=== PATIENT | female | born 1945 | race Caucasian/White ===

== ENCOUNTER → 2017-03-27 | Outpatient (REF) | payer MEDICARE ==
[~2017-03-27] MED LIST: ACET65TA OR; ASPI81TA85 PO; CALC600T7 PO; CIPR500T19 OR; CIPR500T89 PO; FLAG500T OR; FLAG500T PO; HYOS0.1264 SL; IBUP200C10 PO; IBUP600T26 PO; IBUP60TA PO; LEVS0.124 SL; OCUVCAP2 PO; PLAQ200T PO; PLAQUENIL OR; PLAQUENIL PO; PRED20TA PO; PROTPAK PO; REST0.05 OU; SIME80TA PO; TYLE325T5 PO; VITA500C24 PO
== END ==
LOC: M LAB REF 16:40
PROVIDERS: ATTEND Nurse Practitioner Women's Health
DX: N39.0 Urinary tract infection, site not specified (principal)

== ENCOUNTER → 2017-06-18 | Outpatient (REF) | payer MEDICARE | LOC: M LAB REF 12:52 | PROVIDERS: ATTEND Emergency Medicine | DX: N30.01 Acute cystitis with hematuria (principal) ==

== ENCOUNTER 2017-11-27 12:03 | Emergency (ER) | payer MEDICARE ==
[2017-11-27] MEDS: NS 1,000 ML IV (12:30)
[2017-11-27 12:52] LABS: BASO % 0.6 % (0.0-1.0); EOS # 0.1 10^3/uL (0.0-0.50); EOS % 1.4 % (0.0-3.0); HEMOGLOBIN 12.4 g/dl (12.0-16.0); IMMATURE GRANULOCYTE % 0.4 % (0-3.0); LYMPH # 1.3 10^3/uL (1.5-4.5); LYMPH % 25.8 % (24.0-44.0); MEAN CORPUSCULAR HEMOGLOBIN 30.4 pg (27.0-33.0); MEAN CORPUSCULAR HGB CONC 33.5 g/dl (32.0-36.5); MEAN CORPUSCULAR VOLUME 90.7 fl (80.0-96.0); MONO # 0.3 10^3/uL (0.0-0.8); MONO % 6.6 % (0.0-5.0); NEUTROPHILS # 3.3 10^3/uL (1.8-7.7); NEUTROPHILS % 65.2 % (36.0-66.0); PLATELET COUNT, AUTOMATED 204 10^3/uL (150-450); RED BLOOD COUNT 4.08 10^6/uL (4.00-5.40); RED CELL DISTRIBUTION WIDTH 13.2 % (11.5-14.5)
[2017-11-27 12:59] LABS: KETONE, URINE AUTO RFX NEGATIVE (NEGATIVE); LEUKOCYTE ESTERASE UR AUTO RFX 3+ (NEGATIVE); MUCUS, URINE RFX SMALL (NEGATIVE); NITRITE, URINE AUTO RFX NEGATIVE (NEGATIVE); RBC, URINE AUTO RFX 9 /HPF (0-3); SPECIFIC GRAVITY UR AUTO RFX 1.015 (1.002-1.035); SQUAM EPITHELIAL CELL UR AURFX 2 /HPF (0-6); WBC, URINE AUTO RFX 18 /HPF (0-3)
[2017-11-27 13:14] LABS: LACTIC ACID SEPSIS PROTOCOL 1.2 MMOL/L (0.4-2.0)
[2017-11-27 13:15] LABS: ALBUMIN 3.3 GM/DL (3.2-5.2); ALBUMIN/GLOBULIN RATIO 0.87 (1.00-1.93); ALKALINE PHOSPHATASE 114 U/L (45-117); ALT/SGPT 45 U/L (12-78); ANION GAP 6 MEQ/L (8-16); AST/SGOT 46 U/L (7-37); BILIRUBIN,DIRECT < 0.1 MG/DL (0.0-0.2); BILIRUBIN,TOTAL 0.4 MG/DL (0.2-1.0); BLOOD UREA NITROGEN 8 MG/DL (7-18); CALCIUM LEVEL 8.7 MG/DL (8.8-10.2); CARBON DIOXIDE LEVEL 27 MEQ/L (21-32); CHLORIDE LEVEL 104 MEQ/L (98-107); GLOMERULAR FILTRATION RATE > 60.0 (>39); GLUCOSE, FASTING 88 MG/DL (70-100); POTASSIUM SERUM 4.8 MEQ/L (3.5-5.1); SODIUM LEVEL 137 MEQ/L (136-145); TOTAL PROTEIN 7.1 GM/DL (6.4-8.2)
[2017-11-27] MEDS ORDERED: ISOVUE-370 76% 100ML VIAL (Q9967) As Ordered (13:40)
[2017-11-27] MEDS: KETOROLAC 30 MG/ML VIAL (J1885) IV (13:41)
[2017-11-27] MEDS: AUGMENTIN 875 MG TAB PO (15:17)
== END 2017-11-27 15:19 | disposition home or self-care (01) ==
LOC: M ED 12:03
DX: K57.32 Diverticulitis of large intestine without perforation or abscess without bleeding (principal); I10 Essential (primary) hypertension; E78.00 Pure hypercholesterolemia, unspecified; M34.9 Systemic sclerosis, unspecified; Z88.5 Allergy status to narcotic agent; Z88.2 Allergy status to sulfonamides; Z79.899 Other long term (current) drug therapy
CPT/HCPCS: Q9967

== ENCOUNTER 2017-12-29 07:50 | Emergency (ER) | payer MEDICARE ==
[2017-12-29] MEDS: NS 500 ML IV (08:30)
[2017-12-29 08:40] LABS: BASO % 0.3 % (0.0-1.0); EOS # 0.1 10^3/uL (0.0-0.50); EOS % 0.9 % (0.0-3.0); HEMATOCRIT 40.4 % (36.0-47.0); HEMOGLOBIN 13.6 g/dl (12.0-15.5); IMMATURE GRANULOCYTE % 0.3 % (0-3.0); LYMPH # 1.1 10^3/uL (1.5-4.5); LYMPH % 13.5 % (24.0-44.0); MEAN CORPUSCULAR HEMOGLOBIN 30.6 pg (27.0-33.0); MEAN CORPUSCULAR HGB CONC 33.7 g/dl (32.0-36.5); MONO # 0.5 10^3/uL (0.0-0.8); MONO % 6.8 % (0.0-5.0); NEUTROPHILS # 6.1 10^3/uL (1.8-7.7); NEUTROPHILS % 78.2 % (36.0-66.0); PLATELET COUNT, AUTOMATED 259 10^3/uL (150-450); RED BLOOD COUNT 4.44 10^6/uL (4.00-5.40); RED CELL DISTRIBUTION WIDTH 13.1 % (11.5-14.5); WHITE BLOOD COUNT 7.8 10^3/uL (4.0-10.0)
[2017-12-29] MEDS: NS 1,000 ML IV (08:52)
[2017-12-29 09:00] LABS: ALBUMIN 3.5 GM/DL (3.2-5.2); ALBUMIN/GLOBULIN RATIO 0.88 (1.00-1.93); ALKALINE PHOSPHATASE 159 U/L (45-117); ALT/SGPT 35 U/L (12-78); ANION GAP 7 MEQ/L (8-16); AST/SGOT 30 U/L (7-37); BILIRUBIN,DIRECT 0.1 MG/DL (0.0-0.2); BILIRUBIN,TOTAL 0.6 MG/DL (0.2-1.0); BLOOD UREA NITROGEN 9 MG/DL (7-18); CARBON DIOXIDE LEVEL 26 MEQ/L (21-32); CHLORIDE LEVEL 104 MEQ/L (98-107); CREATININE FOR GFR 0.54 MG/DL (0.55-1.30); GLOMERULAR FILTRATION RATE > 60.0 (>39); GLUCOSE, FASTING 94 MG/DL (70-100); LIPASE 142 U/L (73-393); POTASSIUM SERUM 4.4 MEQ/L (3.5-5.1); SODIUM LEVEL 137 MEQ/L (136-145); TOTAL PROTEIN 7.5 GM/DL (6.4-8.2)
[2017-12-29] MEDS: ONDANSETRON 4MG/2ML VIAL (J2405) IV (09:11)
[2017-12-29] MEDS ORDERED: ISOVUE-370 76% 100ML VIAL (Q9967) As Ordered (09:12)
[2017-12-29] MEDS: MORPHINE 2 MG/ML 1ML SYRINGE (J2270) IV (09:12)
== END 2017-12-29 11:04 | disposition home or self-care (01) ==
LOC: M ED 07:50
DX: K57.92 Diverticulitis of intestine, part unspecified, without perforation or abscess without bleeding (principal); E78.5 Hyperlipidemia, unspecified; Z79.899 Other long term (current) drug therapy; Z88.2 Allergy status to sulfonamides; Z88.5 Allergy status to narcotic agent
CPT/HCPCS: J2405

== ENCOUNTER → 2018-01-14 | Outpatient (REF) | payer MEDICARE ==
[2018-01-14 17:08] LABS: BASO % 0.8 % (0.0-1.0); EOS # 0.1 10^3/uL (0.0-0.50); HEMATOCRIT 37.6 % (36.0-47.0); HEMOGLOBIN 12.6 g/dl (12.0-15.5); IMMATURE GRANULOCYTE % 0.4 % (0-3.0); LYMPH # 1.6 10^3/uL (1.5-4.5); MEAN CORPUSCULAR HEMOGLOBIN 30.9 pg (27.0-33.0); MEAN CORPUSCULAR HGB CONC 33.5 g/dl (32.0-36.5); MEAN CORPUSCULAR VOLUME 92.2 fl (80.0-96.0); MONO # 0.5 10^3/uL (0.0-0.8); MONO % 9.5 % (0.0-5.0); NEUTROPHILS # 3.1 10^3/uL (1.8-7.7); NEUTROPHILS % 58.3 % (36.0-66.0); PLATELET COUNT, AUTOMATED 304 10^3/uL (150-450); RED BLOOD COUNT 4.08 10^6/uL (4.00-5.40); RED CELL DISTRIBUTION WIDTH 13.6 % (11.5-14.5); WHITE BLOOD COUNT 5.2 10^3/uL (4.0-10.0)
[2018-01-14 17:29] LABS: ALBUMIN 3.4 GM/DL (3.2-5.2); ALBUMIN/GLOBULIN RATIO 0.97 (1.00-1.93); ALKALINE PHOSPHATASE 82 U/L (45-117); ALT/SGPT 31 U/L (12-78); ANION GAP 5 MEQ/L (8-16); AST/SGOT 27 U/L (7-37); BILIRUBIN,TOTAL 0.4 MG/DL (0.2-1.0); BLOOD UREA NITROGEN 8 MG/DL (7-18); CALCIUM LEVEL 8.7 MG/DL (8.8-10.2); CARBON DIOXIDE LEVEL 30 MEQ/L (21-32); CHLORIDE LEVEL 106 MEQ/L (98-107); GLOMERULAR FILTRATION RATE > 60.0 (>39); GLUCOSE, FASTING 84 MG/DL (70-100); POTASSIUM SERUM 4.3 MEQ/L (3.5-5.1); SODIUM LEVEL 141 MEQ/L (136-145); THYROID STIMULATING HORMONE 0.729 uIU/ML (0.358-3.740); TOTAL PROTEIN 6.9 GM/DL (6.4-8.2)
== END ==
LOC: M LABDRAW1 11:32
DX: R63.4 Abnormal weight loss (principal)
CPT/HCPCS: 84443

== ENCOUNTER → 2018-02-12 | Outpatient (REF) | payer MEDICARE ==
[2018-02-12 14:16] LABS: C REACTIVE PROTEIN QUANTITATIV < 0.30 MG/DL (0.00-0.30)
[2018-02-12 15:00] LABS: ERYTHROCYTE SEDIMENTATION RATE 37 mm/hr (0-30)
== END ==
LOC: M LABDRAW1 12:44
DX: M31.6 Other giant cell arteritis (principal)
CPT/HCPCS: 86140

== ENCOUNTER 2019-06-02 21:01 | Inpatient (IN) | payer MEDICARE ==
[~2019-06-02] VITALS: Ht 144.8 cm; Wt 44.2 kg
[~2019-06-02 21:01] MED LIST changes: +AUGM875T28 PO; +CALC1TAB30 PO; +CIPR-249 PO; +FISH100049 PO; +HYDR-3715 PO; -IBUP200C10 PO; +IBUP200C25 PO; +IBUP600T42 PO; -IBUP60TA PO; +SERT25TA88 PO; +SYSTSOL14; +VITA500C10 PO
[2019-06-02] MEDS ORDERED: KETOROLAC 30 MG/ML VIAL (J1885) IV ONE (22:30)
[2019-06-03] MEDS ORDERED: [UNRECOGNIZED DRUG - CODE] PO (00:51)
[2019-06-03] MEDS ORDERED: SYST0.6S OU (00:51)
[2019-06-03] MEDS ORDERED: ASCO500T PO (00:51)
[2019-06-03] MEDS ORDERED: MOM 30ML SUSPENSION UDC PO PRN (01:45)
[2019-06-03] MEDS ORDERED: MAALOX 30 ML SUSP *UDC PO PRN (01:45)
[2019-06-03] MEDS ORDERED: ACETAMINOPHEN TAB 650MG DOSE (2X325MG) PO PRN (01:45)
[2019-06-03 02:20] VITALS: BP 167/65
[2019-06-03] MEDS: ONDANSETRON 4MG/2ML VIAL (J2405) IV SCH ×5 (02:47→18:00)
[2019-06-03] MEDS: PERCOCET 5MG/325MG TAB PO PRN ×2 (02:47→08:42)
[2019-06-03] MEDS ORDERED: D5W/0.9% SODIUM CHLORIDE 1,000 ML IV SCH (03:30)
--- NOTE | 2019-06-03 04:16 | HPEPDOC ---
General Date of Admission Jun 03, 2019 at 01:36 Date of Service: Jun 03, 2019 Chief Complaint The patient is a 74-year-old female admitted with a reason for visit of Closed Trimalleolar Fracture Of Left Ankle. Source: Patient Exam Limitations: No limitations Timing/Duration: Day(s) Severity: Moderate History of Present Illness Ms. Aleman is a 74 years old woman who had a mechanical fall at home today and twisted her left ankle. she came ER where x-ray showed Closed Trimalleolar Fracture Of Left Ankle. Pt has no other symptoms than pain. She is her usual state of health. In ER, pt had normal vitals and labs. Ortho consulted: plan for surgery in the morning. Home Medications Scheduled Ascorbic Acid (Ascorbic Acid) 500 Mg Tablet, 500 MG PO DAILY, (Reported) Calcium Carbonate/Vitamin D3 (Calcium 500-Vit D3 200 Caplet) 1 Tab Tab, 1 TAB PO DAILY, (Reported) Bynum-3/Dha/Epa/Fish Oil (Fish Oil 1,000 mg Softgel) 1 Each Capsule, 1 CAP PO BID, (Reported) Sertraline HCl (Sertraline HCl) 25 Mg Tab, 25 MG PO DAILY, (Reported) Scheduled PRN Propylene Glycol (Systane Complete) 10 Ml Drops, 1 DROP OU QID PRN for DRY EYES, (Reported) Allergies Coded Allergies: codeine (Verified Allergy, Mild, GI upset, 06/02/19) Sulfa (Sulfonamide Antibiotics) (Verified Allergy, Unknown, 06/02/19) Past Medical History Medical History HLD, Scleroderma Family History Significant Family History: No pertinent family hx Social History * Smoker: current smoker Alcohol: Denies Drugs: denies A-FIB/CHADSVASC A-FIB History Current/History of A-Fib/PAF?: No Review of Systems Constitutional: Denies: Chills, Fever Eyes: Denies: Pain, Vision change ENT: Denies: Head Aches, Ear Pain Skin: Denies: Rash, Lesions Pulmonary: Denies: Dyspnea, Cough Cardiovascular: Denies: Chest Pain, Palpitations Gastrointestinal: Denies: Nausea, Vomiting, Abdominal Pain Genitourinary: Denies: Dysuria, Frequency Hematologic: Denies: Bruising, Bleeding Excessively Endocrine: Denies: Polydipsia, Polyphagia Musculoskeletal: Reports: Foot Pain; Denies: Back Pain Neurological: Denies: Weakness, Numbness Psych: Denies: Mood Normal, Anxiety, Depression Physical Examination General Exam: Positive: Alert, Cooperative, No Acute Distress Eye Exam: Positive: PERRLA, Conjunctiva & lids normal ENT Exam: Positive: Atraumatic, Mucous membr. moist/pink Neck Exam: Positive: Supple; Negative: JVD Chest Exam: Positive: Clear to auscultation, Normal air movement Heart Exam: Positive: Rate Normal, Regular Rhythm, Normal S1, Normal S2; Negative: Murmurs Abdomen Exam: Positive: Normal bowel sounds, Soft; Negative: Tenderness Extremity Exam: Positive: Normal pulses; Negative: Edema Skin Exam: Positive: Nl turgor and temperature; Negative: Rash, Breakdown Neuro Exam: Positive: Normal Gait, Normal Speech Psych Exam: Positive: Mental status NL, Mood NL Vital Signs Vital Signs Date Time Temp Pulse Resp B/P (MAP) Pulse Ox O2 Delivery O2 Flow Rate FiO2 06/03/19 03:17 16 06/03/19 02:20 98.1 65 167/65 (99) 96 06/03/19 02:15 Room Air Assessment/Plan Closed Trimalleolar Fracture Of Left Ankle - NPO, OR in the morning - Low risk patient undergoing moderate risk procedure; no need for medical optimization - DV prophylaxis from the evening - pain control Plan / VTE VTE Prophylaxis Ordered?: Yes VTE Exclusion Mechanical Proph: Other VTE Exclusion Pharmacological: N/A:VTE Prophy Ordered Plan IVF: Initiate Diet: Make NPO Activity: DARSHANA Ward MD Jun 03, 2019 03:51
[2019-06-03 06:00] VITALS: BP 145/62
--- NOTE | 2019-06-03 07:50 | REP ---
Left ankle four views: There is a bimalleolar fracture., however, on the tibia-fibula series this same date there appears to also be a fracture of the posterior malleolus. Therefore, this is probably a trimalleolar fracture. There is no dislocation. The mortise is symmetric. There is demineralization. Impression: Trimalleolar fracture without dislocation. Electronically Signed by Yeison Marie MD 06/03/2019 07:42 A
--- NOTE | 2019-06-03 07:51 | REP ---
Left tibia-fibula two views: There is a trimalleolar fracture at the ankle with no dislocation. No other tibia-fibula fracture is identified. There are no calcifications or foreign bodies. Electronically Signed by Yeison Marie MD 06/03/2019 07:43 A
--- NOTE | 2019-06-03 07:52 | IPNPDOC ---
Subjective Date Seen The patient was seen on 06/03/19. Subjective Chief Complaint/HPI Pt resting comfortably in bed, reports pain is controlled. She is only c/o of right ear ache Skin: Denies: Rash, Lesions, Jaundice, Bruising, Itching, Dry, Breakdown, Nail Changes, Other Cardiovascular: Denies: Chest Pain, Palpitations, Orthopnea, Paroxysmal Noc. Dyspnea, Edema, Lt Headedness, Other Symptoms Hematologic: Denies: Bruising, Bleeding Excessively, Petecchia, Purpura, Enlarged Lymph Nodes, Other Hematologic Neurological: Denies: Weakness, Numbness, Incoordination, Change in speech, Confusion, Seizures, Other Symptoms Objective Physical Examination General Exam: Positive: Alert, Cooperative, No Acute Distress Eye Exam: Positive: PERRLA, Conjunctiva & lids normal ENT Exam: Positive: Atraumatic, Mucous membr. moist/pink, Pharynx Normal, Tongue Midline Neck Exam: Positive: Supple; Negative: JVD, thyromegaly Chest Exam: Positive: Clear to auscultation, Normal air movement; Negative: Rales, Rhonchi, Wheezing Heart Exam: Positive: Rate Normal, Regular Rhythm, Normal S1, Normal S2; Negative: Murmurs Abdomen Exam: Positive: Normal bowel sounds, Soft; Negative: Tenderness, Hepatospenomegaly, Mass Extremity Exam: Positive: Normal pulses; Negative: Edema Skin Exam: Positive: Nl turgor and temperature; Negative: Rash, Breakdown Neuro Exam: Positive: Normal Gait, Normal Speech, Strength at 5/5 X4 ext Psych Exam: Positive: Mental status NL, Mood NL, Oriented x 3 Assessment /Plan Assessment # s/p traumatic fall with Left Trimalleolar ankle fracture - patient is medically stable, and does not warrant medical optimization, and may proceed with non-elective surgery this afternoon. - norco prn pain, she is tolerating this despite listed allergy to codeine - PT/OT eval # Scleroderma - mild form, she is not on any therapy # Vitamin D deficiency - resume Calcium with vitamin D # Anxiety/Depression - continue sertraline # DVT prophylaxis - SCDs for now, can start lovenox in next 24 hours Plan/VTE VTE Prophylaxis Ordered?: No VTE Exclusion Pharmacological: Other (going to OR today) VS, I&O, 24H, Fishbone Vital Signs/I&O Vital Signs Date Time Temp Pulse Resp B/P (MAP) Pulse Ox O2 Delivery O2 Flow Rate FiO2 06/03/19 06:00 98.4 61 16 145/62 (89) 96 06/03/19 02:15 Room Air I&O- Last 24 Hours up to 6 AM 06/03/19 06:00 Intake Total 0 ml Balance 0 ml OMAIRA DESHPANDE MD Jun 03, 2019 07:52
--- NOTE | 2019-06-03 07:54 | REP ---
Left foot four views: There is a trimalleolar fracture at the ankle without dislocation. Additionally, I suspect there are nondisplaced fractures at the bases of the second and third metatarsals. This should be correlated with clinical point tenderness. There is demineralization. Joint spaces are unremarkable. No calcifications are foreign bodies. Impression: Trimalleolar fracture at the ankle without dislocation. Probable nondisplaced fractures at the bases of the second and third metatarsals. Electronically Signed by Yeison Marie MD 06/03/2019 07:46 A
[2019-06-03] MEDS: ASCORBIC ACID 500 MG TAB PO SCH (08:21)
[2019-06-03] MEDS: SERTRALINE HCL 25 MG TABLET PO SCH (08:42)
[2019-06-03 13:41] VITALS: BP 142/62
[2019-06-03] MEDS ORDERED: fentaNYL 100 MCG/2 ML INJECTION (J3010) As Ordered ONE ×2 (15:00→15:34)
[2019-06-03] MEDS ORDERED: MIDAZOLAM INJ 2 MG/2 ML VIAL (J2250) As Ordered ONE ×2 (15:00→15:34)
[2019-06-03] MEDS ORDERED: ONDANSETRON 4MG/2ML VIAL (J2405) As Ordered ONE ×2 (15:31→23:30)
[2019-06-03] MEDS ORDERED: ONDANSETRON 4MG/2ML VIAL (J2405) IV ONE (15:45)
[2019-06-03] MEDS ORDERED: ROPIvacaine 0.5% 30 ML INJECTION (J2795 PER 1MG) ONE (16:41)
[2019-06-03] MEDS ORDERED: LIDOCAINE 1% MDV 20ML VIAL ONE (16:41)
[2019-06-03] MEDS ORDERED: dexameTHASONE 10 MG/1 ML VIAL PRES.FREE (J1100) ONE (16:41)
[2019-06-03] MEDS ORDERED: fentaNYL 100 MCG/2 ML INJECTION (J3010) IV SCH (16:45)
[2019-06-03] MEDS ORDERED: MIDAZOLAM INJ 2 MG/2 ML VIAL (J2250) IV SCH (16:45)
[2019-06-03] MEDS ORDERED: BUPIVACAINE HCL 0.5% 30 ML VIAL As Ordered ONE (20:53)
[2019-06-03] MEDS ORDERED: ceFAZolin 1GM INJ (J0690 PER 500MG) As Ordered ONE (20:53)
[2019-06-03] MEDS ORDERED: PROPOFOL 500 MG/50 ML VIAL As Ordered ONE (20:59)
[2019-06-03] MEDS ORDERED: HEPARIN SOD (PORCINE) 5000 UNITS/ML VIAL SQ SCH (21:00)
[2019-06-03] MEDS ORDERED: KETOROLAC 60 MG/2 ML VIAL (J1885) As Ordered ONE (22:52)
[2019-06-03] MEDS ORDERED: ONDANSETRON 4MG/2ML VIAL (J2405) IV PRN (23:15)
[2019-06-03] MEDS ORDERED: LR 1,000 ML IV SCH ×2 (23:15→23:45)
[2019-06-03] MEDS ORDERED: HYDROMORPHONE HCL 0.5 MG/ 0.5 ML SYRINGE (J1170 PER 1) IV PRN (23:15)
[2019-06-03] MEDS ORDERED: PERCOCET 5MG/325MG TAB PO PRN (23:15)
[2019-06-03] MEDS ORDERED: fentaNYL 100 MCG/2 ML INJECTION (J3010) IV PRN (23:15)
[2019-06-03] MEDS ORDERED: METOCLOPRAMIDE INJ 10MG/2ML VIAL (J2765) IV PRN (23:30)
[2019-06-03] MEDS ORDERED: traMADol 50 MG TAB PO PRN (23:45)
[2019-06-03] MEDS ORDERED: METOCLOPRAMIDE INJ 10MG/2ML VIAL (J2765) As Ordered ONE (23:47)
[2019-06-04] VITALS (9 sets, daily range): BP systolic 114–140; BP diastolic 47–59
[2019-06-04] MEDS: ONDANSETRON 4MG/2ML VIAL (J2405) IV SCH ×7 (00:12→21:59)
[2019-06-04] MEDS: ACETAMINOPHEN 500 MG TAB PO SCH ×4 (00:19→23:02)
[2019-06-04] MEDS: ceFAZolin SOD 1 GM in D5W MINI-BAG PLUS 50 ML IV SCH ×2 (04:06→12:49)
[2019-06-04] MEDS ORDERED: TRAM50TA2 PO ×2 (05:57→06:04)
[2019-06-04] MEDS ORDERED: ASPI81TA85 PO (05:57)
[2019-06-04] MEDS ORDERED: traMADol 50 MG TAB PO PRN ×2 (06:00)
[2019-06-04 08:25] LABS: HEMATOCRIT 30.6 % (36.0-47.0); HEMOGLOBIN 10.2 g/dl (12.0-15.5); MEAN CORPUSCULAR HGB CONC 33.3 g/dl (32.0-36.5); PLATELET COUNT, AUTOMATED 185 10^3/uL (150-450); WHITE BLOOD COUNT 6.9 10^3/uL (4.0-10.0)
[2019-06-04 08:41] LABS: BLOOD UREA NITROGEN 8 MG/DL (7-18); CALCIUM LEVEL 8.3 MG/DL (8.8-10.2); CARBON DIOXIDE LEVEL 25 MEQ/L (21-32); CHLORIDE LEVEL 102 MEQ/L (98-107); GLOMERULAR FILTRATION RATE > 60.0 (>39); GLUCOSE, FASTING 148 MG/DL (70-100); POTASSIUM SERUM 4.2 MEQ/L (3.5-5.1); SODIUM LEVEL 136 MEQ/L (136-145)
[2019-06-04] MEDS: ASCORBIC ACID 500 MG TAB PO SCH (08:47)
[2019-06-04] MEDS: SENOKOT S TAB PO SCH ×2 (08:48→20:42)
[2019-06-04] MEDS: SERTRALINE HCL 25 MG TABLET PO SCH (08:48)
[2019-06-04] MEDS: ASPIRIN 81 MG ENTERIC TAB PO SCH ×2 (08:49→20:42)
[2019-06-04] MEDS: MIRALAX *UNIT DOSE* 17GM PACKET PO SCH (08:49)
--- NOTE | 2019-06-04 09:33 | REP ---
C-ARM VIEWS LEFT ANKLE: Multiple C-arm views of the left ankle performed during placement of metallic plate and screws in the distal fibula and metallic screws in the medial malleolus. Osseous structures are well aligned. Ankle mortise appears anatomic. 1 minute and 22 seconds fluoroscopy time utilized. Electronically Signed by Yeison Jarquin MD 06/04/2019 06:28 P
--- NOTE | 2019-06-04 11:29 | RO ---
DATE OF PROCEDURE: 06/03/2019 PREOPERATIVE DIAGNOSIS: Left bimalleolar ankle fracture. POSTOPERATIVE DIAGNOSIS: Left bimalleolar ankle fracture. PROCEDURE: Open reduction internal fixation left ankle. SURGEON: Dr. Latoya Delcid [employer] OPERATOR: None. ANESTHESIA: LMA with popliteal nerve block. ESTIMATED BLOOD LOSS: 25 mL. COMPLICATIONS: None. IMPLANTS: Synthes 6-hole 1/3 tubular locking plate with associated 3.5 cortical and 4.0 cancellous screws. Two 4.0 mm cannulated screws in the medial malleolus. CONDITION: Stable. INDICATIONS: Nicolette Aleman is a 74-year-old female who is status post a left ankle fracture. She presents for surgical fixation. Risks and benefits of surgery were discussed with the patient in detail and include, but are not limited to infection, damage to nerves and blood vessels, need for additional procedures. Informed consent was obtained. DESCRIPTION OF PROCEDURE: The patient was met in the postanesthesia care unit (PACU) where her left lower extremity was examined. She did have two fracture blisters, however, these were more on the posterior medial aspect of the patient's ankle and otherwise soft tissue was free of any lesions and suitable for surgery. The fracture blisters were out of the way of the incision. She underwent a popliteal nerve block. Her left lower extremity was marked. She was taken to the operating room where she underwent general anesthesia. A well padded tourniquet was applied to the left upper thigh. The left lower extremity was prepped and draped in the normal sterile fashion. Following this, an official time out was held where the correct patient, operative site and operative procedure were verified. Using an Esmarch, the left lower extremity was exsanguinated and tourniquet was inflated to 250 mmHg. It was up for approximately 95 minutes. An incision was made over the posterior lateral aspect of the fibula. The fracture was identified and cleaned of hematoma and debris. It was reduced using pointed reduction clamp. Reduction was held with a 0.062 K-wire. A 6-hole 1/3 tubular plate was selected. Its position was confirmed on AP, lateral and mortise views. The plate was applied using 3.5 mm cortical screws proximally and 4.0 mm cancellous screws distally. There was good compression across the fracture site. Hardware placement and fracture reduction were verified on the C-arm using AP, lateral and mortise views. Next, attention was turned to the medial malleolus. Incision was made just over the medial malleolus. Care was taken to stay as far as possible from the fracture blisters. The fracture was identified and cleaned of hematoma and debris. Copious irrigation was performed to the fracture site and exposed the tibial talar joint. Following this, the fracture was reduced using dental pick and held in place with a 0.062 K-wire. Following that, two 4.0 mm cannulated screws were placed across the fracture. Final x-rays were performed in AP, mortise and lateral views. An external rotation stress test was performed at this time and was found to be stable. All wounds were copiously irrigated. Deep tissues were closed using #3-0 Vicryl and skin was closed using #3-0 nylon. A well padded dressing was applied. The patient was extubated and transferred to the postanesthesia care unit (PACU) in stable condition. PLAN: The patient will be non weight bearing on the left lower extremity with strict elevation. Plan will be for ulcer and for deep vein thrombosis (DVT) prophylaxis. She will be readmitted to the medicine service where she will also be on IV antibiotics.
--- NOTE | 2019-06-04 11:54 | IPNPDOC ---
Subjective Date Seen The patient was seen on 06/04/19. Subjective Chief Complaint/HPI doing well this morning no complaints Objective Physical Examination General Exam: Positive: Alert, Cooperative, No Acute Distress, Other (sitting in chair) Eye Exam: Positive: PERRLA, Conjunctiva & lids normal ENT Exam: Positive: Atraumatic, Mucous membr. moist/pink, Pharynx Normal, Tongue Midline Neck Exam: Positive: Supple; Negative: JVD, thyromegaly Chest Exam: Positive: Clear to auscultation, Normal air movement; Negative: Rales, Rhonchi, Wheezing Heart Exam: Positive: Rate Normal, Regular Rhythm, Normal S1, Normal S2; Negative: Murmurs Abdomen Exam: Positive: Normal bowel sounds, Soft; Negative: Tenderness, Hepatospenomegaly, Mass Extremity Exam: Positive: Normal pulses; Negative: Edema Skin Exam: Positive: Nl turgor and temperature; Negative: Rash, Breakdown Neuro Exam: Positive: Normal Gait, Normal Speech, Strength at 5/5 X4 ext Psych Exam: Positive: Mental status NL, Mood NL, Oriented x 3 Assessment /Plan Assessment # s/p traumatic mechanical fall from ground level with Left Bimalleolar ankle fracture, POD # 1 s/p ORIF - NWB LLE - Asa 81 mg bid for DVT prophylaxis - am labs stable # Scleroderma - mild form, she is not on any therapy # Vitamin D deficiency - resume Calcium with vitamin D # Anxiety/Depression - continue sertraline # DVT prophylaxis - SCDs + Asa 81 mg bid Plan/VTE VTE Prophylaxis Ordered?: No VTE Exclusion Pharmacological: Other (going to OR today) VS, I&O, 24H, Fishbone Vital Signs/I&O Vital Signs Date Time Temp Pulse Resp B/P (MAP) Pulse Ox O2 Delivery O2 Flow Rate FiO2 06/04/19 06:30 98.2 67 18 136/55 (82) 98 06/04/19 02:59 2.0 06/03/19 02:15 Room Air I&O- Last 24 Hours up to 6 AM 06/04/19 06:00 Intake Total 1682 ml Output Total 1600 ml Balance 82 ml Laboratory Data 24H LABS Laboratory Tests 2 06/04/19 08:07: Nucleated Red Blood Cells % (auto) 0.0, Anion Gap 9, Glomerular Filtration Rate > 60.0, Blood Urea Nitrogen 8, Creatinine 0.60, Sodium Level 136, Potassium Level 4.2, Chloride Level 102, Carbon Dioxide Level 25, Calcium Level 8.3L CBC/BMP Laboratory Tests 06/04/19 08:07 Red Blood Count 3.40 L, Mean Corpuscular Volume 90.0, Mean Corpuscular Hemoglobin 30.0, Mean Corpuscular Hemoglobin Concent 33.3, Red Cell Distribution Width 13.8, Calcium Level 8.3 L OMAIRA DESHPANDE MD Jun 04, 2019 11:54
--- NOTE | 2019-06-04 19:19 | CR ---
DATE OF CONSULTATION: 06/03/2019 CHIEF COMPLAINT: Left ankle pain. HISTORY OF PRESENT ILLNESS: Ms. Aleman is a 74-year-old woman who was admitted by the hospitalist through the emergency room after stumbling and injuring her left ankle. She was coming down some stairs, stumbled on the last stair, and twisted the ankle. She could not bear weight. She ended up being brought in through the emergency room, where imaging studies revealed what is technically a trimalleolar fracture of the left ankle with the talus aligned under the tibia. She was splinted in the emergency room and admitted to the hospitalist service for medical optimization and preoperative medical planning. ALLERGIES: No known drug allergies. MEDICAL HISTORY 1. Scleroderma. 2. Anxiety, depression. SURGICAL HISTORY: Negative. MEDICATIONS: Zoloft SOCIAL HISTORY: Nonsmoker. Lives at home. FAMILY HISTORY: This 74-year-old lives with her mother, who is in her 90s and struggling. REVIEW OF SYSTEMS: Complaining only of left ankle pain. Not complaining of loss of consciousness, headache, swallowing trouble, hoarseness, shortness of breath, abdominal pain, skin trouble, change in bowel or bladder habits, endocrine problems, or neurologic issues. IMAGING STUDIES: Reviewed as per history of present illness (HPI). CLINICAL EXAMINATION: Alert and cooperative. Mood and affect appropriate. She is not in distress. She is not short of breath. She talks in complete sentences and is quite articulate. There is no abdominal distension. Healthy skin, upper and lower extremities. Left lower extremity: Tender at the ankle. [employer], well-perfused toes. Palpable dorsalis pedis pulse. Splint was inspected and intact. No effusion at the knee. No pain with rotation at the hip. IMPRESSION: Left ankle technically a trimalleolar fracture. RECOMMENDATIONS: Spoke with the patient about operative fixation using metal hardware. We completed the preoperative packet. I completed a consent with the patient. We talked about the procedure proposed and risks, including, but not limited to, pain, failure, limp, infection, need for more surgery, skin problems, blood clots, infection, other issues. She agreed to proceed. I explained to the patient that if I were not available to do the surgery, her case might be passed to the oncoming on-call physician. The patient was comfortable with our plans.
[2019-06-05] MEDS: ONDANSETRON 4MG/2ML VIAL (J2405) IV SCH ×3 (02:00→10:00)
[2019-06-05 06:00] VITALS: BP 140/54
[2019-06-05] MEDS: ACETAMINOPHEN 500 MG TAB PO SCH (08:00)
[2019-06-05] MEDS: SENOKOT S TAB PO SCH (08:01)
[2019-06-05] MEDS: SERTRALINE HCL 25 MG TABLET PO SCH (08:01)
[2019-06-05] MEDS: ASPIRIN 81 MG ENTERIC TAB PO SCH (08:01)
[2019-06-05] MEDS: MIRALAX *UNIT DOSE* 17GM PACKET PO SCH (08:02)
[2019-06-05] MEDS: ASCORBIC ACID 500 MG TAB PO SCH (08:02)
--- NOTE | 2019-06-05 09:16 | IPNPDOC ---
Subjective Date Seen The patient was seen on 06/05/19. Subjective Chief Complaint/HPI Nerve block has wore off, so she's experiencing pain this morning. No other complaints. Objective Physical Examination General Exam: Positive: Alert, Cooperative, Mild Distress Eye Exam: Positive: PERRLA, Conjunctiva & lids normal ENT Exam: Positive: Atraumatic, Mucous membr. moist/pink, Pharynx Normal, Tongue Midline Neck Exam: Positive: Supple; Negative: JVD, thyromegaly Chest Exam: Positive: Clear to auscultation, Normal air movement; Negative: Rales, Rhonchi, Wheezing Heart Exam: Positive: Rate Normal, Regular Rhythm, Normal S1, Normal S2; Negative: Murmurs Abdomen Exam: Positive: Normal bowel sounds, Soft; Negative: Tenderness, Hepatospenomegaly, Mass Extremity Exam: Positive: Normal pulses (right foot only, left foot has cast. cap refill < 5 sec, toes pink color); Negative: Edema Skin Exam: Positive: Nl turgor and temperature; Negative: Rash, Breakdown Neuro Exam: Positive: Normal Speech, Normal Tone, Sensation Intact Psych Exam: Positive: Mental status NL, Mood NL, Oriented x 3 Assessment /Plan Assessment # s/p traumatic mechanical fall from ground level with Left Bimalleolar ankle fracture, POD # 2 s/p ORIF - NWB LLE - Asa 81 mg bid for DVT prophylaxis - labs remain stable # Scleroderma - mild form, she is not on any therapy # Vitamin D deficiency - resume Calcium with vitamin D # Anxiety/Depression - continue sertraline # DVT prophylaxis - SCDs + Asa 81 mg bid # Dispo: Medically stable for discharge today if does well with PT this am. Plan/VTE VTE Prophylaxis Ordered?: No VTE Exclusion Pharmacological: Other (going to OR today) VS, I&O, 24H, Fishbone Vital Signs/I&O Vital Signs Date Time Temp Pulse Resp B/P (MAP) Pulse Ox O2 Delivery O2 Flow Rate FiO2 06/05/19 06:00 98.3 62 18 140/54 (82) 96 06/04/19 02:59 2.0 06/03/19 02:15 Room Air I&O- Last 24 Hours up to 6 AM0 06/05/19 05:59 Intake Total 495 ml Output Total 600 ml Balance -105 ml OMAIRA DESHPANDE MD Jun 05, 2019 09:16
--- NOTE | 2019-06-06 07:05 | IPN ---
DATE: 06/05/2019 CHIEF COMPLAINT: Postop day 1 left ankle fracture. HISTORY OF PRESENT ILLNESS: The patient is seen today on the amador at [facility] [address]. She had open reduction internal fixation apparently by Dr. Delcid yesterday. She is doing well. No concerns. PHYSICAL EXAMINATION: Well-appearing 74-year-old female. Splint is in place on left ankle. She is able to wiggle her toes with normal sensation and the toes are warm and well perfused. ASSESSMENT/PLAN: This pleasant individual may be stable for discharge today if she clears the stairs with physical therapy.
--- NOTE | 2019-06-07 16:35 | DSES ---
DATE OF ADMISSION: 06/03/2019 DATE OF DISCHARGE: 06/05/2019 FINANCIAL NUMBER: [id number] DISCHARGE DIAGNOSIS: 1. Traumatic mechanical fall from ground level with left bimalleolar ankle fracture. 2. Status-post open reduction internal fixation of left ankle fracture. 3. History of scleroderma. 4. Vitamin D deficiency. 5. Anxiety and depression. PROCEDURES PERFORMED DURING THIS HOSPITALIZATION: 1. Left ankle open reduction internal fixation. CONSULTANTS ON THE CASE: Dr. Parr of the orthopedic service. DISPOSITION: Patient is discharged home wit home health DISCHARGE INSTRUCTIONS: The patient is to contact Dr[facility] on [facility] to make an appointment for next week. CONDITION AT DISCHARGE: Stable. IMAGING STUDIES OBTAINED DURING HOSPITAL STAY: 1. Ankle x-ray which showed trimalleolar fracture without dislocation. Tibiofibular x-ray which showed trimalleolar fracture at the ankle with no dislocation. No other tibia fibular fractures or loose bodies. There are no calcifications or foreign bodies. Foot x-ray showed trimalleolar fracture at the ankle without dislocation. Probable nondisplaced fracture at the base of the 2nd and 3rd metatarsals. LABS: White count 6.9, hemoglobin 10.2, hematocrit 30.6, platelet counts are 185,000, Sodium 146, potassium 4.2, chloride 102, carbon dioxide 25, anion gap 9, BUN 8, creatinine 0.6, glucose 148, calcium 8.3. DISCHARGE MEDICATIONS: Aspirin 81 mg twice a day for the next 30 days. Tramadol 50 mg 1 to 2 tabs every 4 hours as needed for pain. Ascorbic acid 500 mg daily, calcium with vitamin D 1 tab daily. Fish oil 100 mg twice a day and propylene glycol 10 mL drops 1 drop to her right eye every 6 hours as needed for dry eyes, sertraline 25 mg by mouth daily. HOSPITAL COURSE: Mrs. Aleman is a 74-year-old woman who had suffered a fall after tripping. The patient presented to the hospital with left ankle pain. Imaging studies as described above indicated that she had a left trimalleolar ankle fracture. She was admitted to the hospitalist service where she was cleared for surgery. The patient was seen by the orthopedic service and taken to the OR by Dr. Parr and underwent left ankle open reduction internal fixation. Her preoperative course was uncomplicated. She was subsequently seen by physical therapy and occupational therapy in the postoperative setting and did quite well. She was deemed stable for discharge home with home health services. Patient was discharged home in stable condition. At the time of discharge the patient's temperature was 98.2, pulse 62, respirations 18, blood pressure 140/54. Oxygen sat 96% on room air. In general the patient is alert and oriented times 3. She appears in no acute distress. Skin is intact. Head is atraumatic normocephalic. Pupils are symmetric and reactive to light. Oropharynx is clear. Neck is supple. Lung sounds are present without rales or rhonchi. Heart is S1, S1 no murmurs or gallops. Abdomen is soft, nontender and nondistended. Extremities without any significant cyanosis, clubbing or edema with the exception of her left lower extremity which has a cast in place. Toes are visible and pink in color. Cap refill less than 5 seconds.
== END 2019-06-05 13:55 | disposition home health service (06) | DRG 494 ==
LOC: M ED 21:01 → M ED INP 06-03 01:36 → M MS5PR 06-03 02:29
PROVIDERS: ADMIT Internal Medicine; ATTEND Internal Medicine
PROC: 0QSG04Z Reposition Right Tibia with Internal Fixation Device, Open Approach (ICD-10-PCS; 2019-06-03)
PROC: 0QSK04Z Reposition Left Fibula with Internal Fixation Device, Open Approach (ICD-10-PCS; principal; 2019-06-03 16:00)
DX: S82.852A Displaced trimalleolar fracture of left lower leg, initial encounter for closed fracture (principal); X50.1XXA Overexertion from prolonged static or awkward postures, initial encounter; Y92.009 Unspecified place in unspecified non-institutional (private) residence as the place of occurrence of the external cause; W10.9XXA Fall (on) (from) unspecified stairs and steps, initial encounter; E55.9 Vitamin D deficiency, unspecified; E78.5 Hyperlipidemia, unspecified; F32.9 Major depressive disorder, single episode, unspecified; F41.9 Anxiety disorder, unspecified; M34.9 Systemic sclerosis, unspecified; Z88.2 Allergy status to sulfonamides; Z88.5 Allergy status to narcotic agent; Z79.899 Other long term (current) drug therapy

== ENCOUNTER → 2019-06-30 | Outpatient (REF) | payer MEDICARE ==
[~2019-06-30] MED LIST changes: +ASCO500T PO; +SERT25TA21 PO; -SERT25TA88 PO; +SYST0.6S OU; +TRAM50TA2 PO; +[UNRECOGNIZED DRUG - CODE] PO
== END ==
LOC: M LABDRAW1 10:36
PROVIDERS: ATTEND Internal Medicine Rheumatology
DX: M31.6 Other giant cell arteritis (principal)

== ENCOUNTER → 2019-07-26 | Outpatient (REF) | payer MEDICARE ==
[2019-07-26 11:40] LABS: BASO % 0.6 % (0.0-1.0); EOS # 0.1 10^3/uL (0.0-0.5); EOS % 1.4 % (0.0-3.0); HEMATOCRIT 36.9 % (36.0-47.0); HEMOGLOBIN 11.9 g/dl (12.0-15.5); LYMPH # 1.8 10^3/uL (1.5-5.0); LYMPH % 35.4 % (24.0-44.0); MEAN CORPUSCULAR HEMOGLOBIN 29.8 pg (27.0-33.0); MEAN CORPUSCULAR HGB CONC 32.2 g/dl (32.0-36.5); MEAN CORPUSCULAR VOLUME 92.5 fl (80.0-96.0); MONO # 0.4 10^3/uL (0.0-0.8); MONO % 7.9 % (0.0-5.0); NEUTROPHILS # 2.8 10^3/uL (1.5-8.5); NEUTROPHILS % 54.5 % (36.0-66.0); PLATELET COUNT, AUTOMATED 320 10^3/uL (150-450); RED BLOOD COUNT 3.99 10^6/uL (4.00-5.40); WHITE BLOOD COUNT 5.1 10^3/uL (4.0-10.0)
[2019-07-26 12:03] LABS: ERYTHROCYTE SEDIMENTATION RATE 48 mm/hr (0-30)
== END ==
LOC: M LABDRAW1 10:03
PROVIDERS: ATTEND Orthopaedic Surgery
DX: S82.852D Displaced trimalleolar fracture of left lower leg, subsequent encounter for closed fracture with routine healing (principal); W18.30XD Fall on same level, unspecified, subsequent encounter; Y92.009 Unspecified place in unspecified non-institutional (private) residence as the place of occurrence of the external cause

== ENCOUNTER 2019-08-09 12:00 | Outpatient (RCR) | payer MEDICARE | END 2019-08-14 | LOC: M PT 12:00 | PROVIDERS: ATTEND Orthopaedic Surgery | DX: S82.852D Displaced trimalleolar fracture of left lower leg, subsequent encounter for closed fracture with routine healing (principal); W18.30XD Fall on same level, unspecified, subsequent encounter; Y92.009 Unspecified place in unspecified non-institutional (private) residence as the place of occurrence of the external cause ==

== ENCOUNTER 2019-09-03 11:40 | Outpatient (RCR) | payer MEDICARE | END 2019-09-14 | LOC: M PT 11:40 | PROVIDERS: ATTEND Orthopaedic Surgery | DX: Q74.2 Other congenital malformations of lower limb(s), including pelvic girdle (principal) ==

== ENCOUNTER 2019-09-17 11:28 | Outpatient (RCR) | payer MEDICARE | END 2019-10-15 | LOC: M PT 11:28 | PROVIDERS: ATTEND Orthopaedic Surgery | DX: Q74.2 Other congenital malformations of lower limb(s), including pelvic girdle (principal) ==

== ENCOUNTER → 2019-12-01 | Outpatient (REF) | payer MEDICARE ==
[2019-12-01 19:31] LABS: BASO % 0.5 % (0.0-1.0); EOS % 0.5 % (0.0-3.0); HEMATOCRIT 35.9 % (36.0-47.0); HEMOGLOBIN 11.2 g/dl (12.0-15.5); LYMPH # 2.2 10^3/uL (1.5-5.0); LYMPH % 26.5 % (24.0-44.0); MEAN CORPUSCULAR HEMOGLOBIN 28.9 pg (27.0-33.0); MEAN CORPUSCULAR HGB CONC 31.2 g/dl (32.0-36.5); MEAN CORPUSCULAR VOLUME 92.8 fl (80.0-96.0); MONO # 0.7 10^3/uL (0.0-0.8); MONO % 8.8 % (0.0-5.0); NEUTROPHILS # 5.2 10^3/uL (1.5-8.5); NEUTROPHILS % 63.3 % (36.0-66.0); PLATELET COUNT, AUTOMATED 259 10^3/uL (150-450); RED BLOOD COUNT 3.87 10^6/uL (4.00-5.40); WHITE BLOOD COUNT 8.2 10^3/uL (4.0-10.0)
[2019-12-01 19:39] LABS: ALT/SGPT 43 U/L (12-78); BILIRUBIN,TOTAL 0.6 MG/DL (0.2-1.0); BLOOD UREA NITROGEN 10 MG/DL (7-18); CALCIUM LEVEL 8.6 MG/DL (8.8-10.2); CARBON DIOXIDE LEVEL 30 MEQ/L (21-32); CHLORIDE LEVEL 107 MEQ/L (98-107); CREATININE FOR GFR 0.58 MG/DL (0.55-1.30); GLOMERULAR FILTRATION RATE > 60.0 (>39); GLUCOSE, FASTING 76 MG/DL (70-100); POTASSIUM SERUM 3.7 MEQ/L (3.5-5.1); SODIUM LEVEL 139 MEQ/L (136-145); THYROID STIMULATING HORMONE 0.952 uIU/ML (0.358-3.740); TOTAL PROTEIN 6.4 GM/DL (6.4-8.2)
== END ==
LOC: M LAB REF 19:08 → M LABDRWAD 19:08
PROVIDERS: ATTEND Physician Assistant
DX: F43.22 Adjustment disorder with anxiety (principal); M34.0 Progressive systemic sclerosis; K58.9 Irritable bowel syndrome, unspecified

== ENCOUNTER → 2019-12-06 | Outpatient (REF) | payer MEDICARE ==
[2019-12-06 16:54] LABS: FOLATE 4.9 NG/ML
== END ==
LOC: M LABDRWAD 16:07
PROVIDERS: ATTEND Physician Assistant
DX: D64.9 Anemia, unspecified (principal)

== ENCOUNTER → 2019-12-07 | Outpatient (REF) | payer MEDICARE | LOC: M LAB REF 12:18 | PROVIDERS: ATTEND Physician Assistant | DX: D64.9 Anemia, unspecified (principal) ==

== ENCOUNTER → 2020-03-09 | Outpatient (REF) | payer MEDICARE ==
[2020-03-09 14:06] LABS: BASO % 0.5 % (0.0-1.0); EOS % 0.5 % (0.0-3.0); HEMATOCRIT 39.7 % (36.0-47.0); LYMPH # 1.9 10^3/uL (1.5-5.0); LYMPH % 31.6 % (24.0-44.0); MEAN CORPUSCULAR HEMOGLOBIN 30.2 pg (27.0-33.0); MEAN CORPUSCULAR HGB CONC 32.7 g/dl (32.0-36.5); MEAN CORPUSCULAR VOLUME 92.1 fl (80.0-96.0); MONO # 0.5 10^3/uL (0.0-0.8); MONO % 8.2 % (0.0-5.0); NEUTROPHILS # 3.6 10^3/uL (1.5-8.5); PLATELET COUNT, AUTOMATED 255 10^3/uL (150-450); RED BLOOD COUNT 4.31 10^6/uL (4.00-5.40); WHITE BLOOD COUNT 6.1 10^3/uL (4.0-10.0)
== END ==
LOC: M LABDRWAD 13:09
PROVIDERS: ATTEND Physician Assistant
DX: D64.9 Anemia, unspecified (principal)

== ENCOUNTER → 2020-04-14 | Outpatient (REF) | payer MEDICARE ==
[~2020-04-14] MED LIST changes: -ASPI81TA85 PO; +ASPI81TA86 PO; +CALC-212 PO
[2020-05-28 08:10] LABS: SSA SJOGRENS A SEE SEPARATE REPORT
[2020-05-28 08:11] LABS: SSB SJOGRENS B SEE SEPARATE REPORT
== END ==
LOC: M LABDRWAD 10:37
PROVIDERS: ATTEND Optometrist
DX: Z13.29 Encounter for screening for other suspected endocrine disorder (principal); Z79.899 Other long term (current) drug therapy

== ENCOUNTER → 2020-04-14 | Outpatient (REF) | payer MEDICARE ==
[2020-06-01 19:26] LABS: ALBUMIN 3.2 GM/DL (3.2-5.2); ALT/SGPT 46 U/L (12-78); BILIRUBIN,TOTAL 0.3 MG/DL (0.2-1.0); BLOOD UREA NITROGEN 11 MG/DL (7-18); CALCIUM LEVEL 8.6 MG/DL (8.8-10.2); CARBON DIOXIDE LEVEL 30 MEQ/L (21-32); CHLORIDE LEVEL 106 MEQ/L (98-107); CREATININE FOR GFR 0.55 MG/DL (0.55-1.30); FERRITIN 27 NG/ML (8-252); GLOMERULAR FILTRATION RATE > 60.0 (>39); GLUCOSE, FASTING 70 MG/DL (70-100); IRON (FE) 119 UG/DL (50-170); PERCENT SATURATION 45.6 % (13.2-45.0); POTASSIUM SERUM 4.2 MEQ/L (3.5-5.1); SODIUM LEVEL 141 MEQ/L (136-145); TOTAL IRON BINDING CAPACITY 261 UG/DL (250-450); TOTAL PROTEIN 6.7 GM/DL (6.4-8.2)
[2020-06-11 14:43] LABS: BASO % 0.4 % (0.0-1.0); EOS % 0.4 % (0.0-3.0); HEMATOCRIT 37.6 % (36.0-47.0); HEMOGLOBIN 12.1 g/dl (12.0-15.5); LYMPH # 1.9 10^3/uL (1.5-5.0); LYMPH % 25.6 % (24.0-44.0); MEAN CORPUSCULAR HEMOGLOBIN 30.4 pg (27.0-33.0); MEAN CORPUSCULAR HGB CONC 32.2 g/dl (32.0-36.5); MEAN CORPUSCULAR VOLUME 94.5 fl (80.0-96.0); MONO # 0.6 10^3/uL (0.0-0.8); MONO % 8.7 % (0.0-5.0); NEUTROPHILS # 4.7 10^3/uL (1.5-8.5); NEUTROPHILS % 64.6 % (36.0-66.0); PLATELET COUNT, AUTOMATED 233 10^3/uL (150-450); RED BLOOD COUNT 3.98 10^6/uL (4.00-5.40); WHITE BLOOD COUNT 7.2 10^3/uL (4.0-10.0)
== END ==
LOC: M LABDRWAD 10:35
PROVIDERS: ATTEND Physician Assistant
DX: K58.9 Irritable bowel syndrome, unspecified (principal); D50.9 Iron deficiency anemia, unspecified

== ENCOUNTER → 2020-10-24 | Outpatient (CLI) | payer MEDICARE ==
[2020-10-24 15:38] LABS: BASO % 0.4 % (0.0-1.0); EOS % 0.3 % (0.0-3.0); HEMATOCRIT 39.5 % (36.0-47.0); HEMOGLOBIN 12.7 g/dl (12.0-15.5); LYMPH # 1.9 10^3/uL (1.5-5.0); LYMPH % 27.6 % (24.0-44.0); MEAN CORPUSCULAR HGB CONC 32.2 g/dl (32.0-36.5); MEAN CORPUSCULAR VOLUME 96.3 fl (80.0-96.0); MONO # 0.6 10^3/uL (0.0-0.8); MONO % 9.2 % (0.0-5.0); NEUTROPHILS # 4.3 10^3/uL (1.5-8.5); NEUTROPHILS % 62.1 % (36.0-66.0); PLATELET COUNT, AUTOMATED 262 10^3/uL (150-450); WHITE BLOOD COUNT 6.9 10^3/uL (4.0-10.0)
[2020-10-24 16:00] LABS: PERCENT SATURATION 25.9 % (13.2-45.0)
== END ==
LOC: M PLALAB 13:18
PROVIDERS: ATTEND Nurse Practitioner Family
DX: D50.9 Iron deficiency anemia, unspecified (principal)

== ENCOUNTER → 2021-01-19 | Outpatient (REF) | payer MEDICARE ==
[2021-01-19 17:29] LABS: BASO % 0.4 % (0.0-1.0); EOS # 0.1 10^3/uL (0.0-0.5); EOS % 0.7 % (0.0-3.0); HEMATOCRIT 39.8 % (36.0-47.0); HEMOGLOBIN 12.9 g/dl (12.0-15.5); LYMPH # 1.8 10^3/uL (1.5-5.0); LYMPH % 20.2 % (24.0-44.0); MEAN CORPUSCULAR HEMOGLOBIN 30.6 pg (27.0-33.0); MEAN CORPUSCULAR HGB CONC 32.4 g/dl (32.0-36.5); MEAN CORPUSCULAR VOLUME 94.5 fl (80.0-96.0); MONO # 0.8 10^3/uL (0.0-0.8); MONO % 8.8 % (2.0-8.0); NEUTROPHILS # 6.3 10^3/uL (1.5-8.5); NEUTROPHILS % 69.6 % (36.0-66.0); PLATELET COUNT, AUTOMATED 270 10^3/uL (150-450); RED BLOOD COUNT 4.21 10^6/uL (4.00-5.40); WHITE BLOOD COUNT 9.1 10^3/uL (4.0-10.0)
[2021-01-19 17:53] LABS: ALBUMIN 3.5 GM/DL (3.2-5.2); ALT/SGPT 46 U/L (12-78); BILIRUBIN,TOTAL 0.3 MG/DL (0.2-1.0); BLOOD UREA NITROGEN 14 MG/DL (7-18); CALCIUM LEVEL 9.5 MG/DL (8.8-10.2); CARBON DIOXIDE LEVEL 31 MEQ/L (21-32); CHLORIDE LEVEL 102 MEQ/L (98-107); CREATININE FOR GFR 0.49 MG/DL (0.55-1.30); FERRITIN 37 NG/ML (8-252); GLOMERULAR FILTRATION RATE > 60.0 (>39); GLUCOSE, FASTING 82 MG/DL (70-100); IRON (FE) 63 UG/DL (50-170); PERCENT SATURATION 21.5 % (13.2-45.0); POTASSIUM SERUM 4.8 MEQ/L (3.5-5.1); SODIUM LEVEL 138 MEQ/L (136-145); TOTAL IRON BINDING CAPACITY 293 UG/DL (250-450); TOTAL PROTEIN 7.1 GM/DL (6.4-8.2)
== END ==
LOC: M PLALAB 16:37
PROVIDERS: ATTEND Nurse Practitioner Family
DX: Z00.00 Encounter for general adult medical examination without abnormal findings (principal); D50.9 Iron deficiency anemia, unspecified

== ENCOUNTER → 2021-07-19 | Outpatient (CLI) | payer MEDICARE | LOC: M PLALAB 13:47 | PROVIDERS: ATTEND Internal Medicine Rheumatology | DX: M35.00 Sjogren syndrome, unspecified (principal); M31.6 Other giant cell arteritis ==

== ENCOUNTER → 2021-07-20 | Outpatient (CLI) | payer MEDICARE ==
[2021-07-20 15:06] LABS: BLOOD UREA NITROGEN 14 MG/DL (7-18); CREATININE FOR GFR 0.58 MG/DL (0.55-1.30); GLOMERULAR FILTRATION RATE > 60.0 (>39)
== END ==
LOC: M PLALAB 12:39
PROVIDERS: ATTEND Obstetrics & Gynecology
DX: Z00.00 Encounter for general adult medical examination without abnormal findings (principal)

== ENCOUNTER → 2021-07-25 | Outpatient (CLI) | payer MEDICARE ==
[~2021-07-25] MED LIST changes: +GASTROGRAFIN SOLUTION 30ML (Q9963) As Ordered ONE; +ISOVUE-370 76% 100ML VIAL As Ordered ONE
--- NOTE | 2021-07-25 15:37 | REP ---
INDICATION: PELVIC SWELLING, MASS, LUMP. COMPARISON: 12/29/2017 TECHNIQUE: Oral Gastrografin mixture 10 mL in 290 mL flavored water for [address] abdomen and pelvis performed without IV contrast. CT abdomen pelvis performed with IV contrast as well, following intravenous administration of 100 cc of Isovue 370. Sagittal and coronal reconstruction images are performed. Delayed images are then provided through the abdomen. FINDINGS: Lung bases: Show linear scarring medial segment right middle lobe unchanged. Some minor dependent atelectatic change and subpleural fibrotic change in the paraspinal right lower lobe medial basal segment. Lung bases otherwise clear. Liver: Right hepatic lobe hemangioma, 1 cm again seen unchanged. No suspicious hepatic mass, biliary dilatation, perihepatic ascites, hepatomegaly or other acute finding. Gallbladder: There is 1 adherent stone or polyp slightly hyperdense on the gallbladder medial wall unchanged. Spleen: Normal. Adrenals: Normal. Pancreas: Normal. Kidneys: Bilobed or 2 adjacent cyst lower pole right kidney about 3.4 cm, previously 3.1 cm 3 and half years ago. No complex features. No solid mass or stone. Peripelvic cyst and extrarenal pelvis on the right are again seen also slightly larger. No hydronephrosis. Symmetric enhancement of the cortex. No stones or solid mass. No dilatation ureters or ureteral stone. Small and large bowel: Small bowel well filled with contrast without acute finding. Oral contrast reaches the distal left colon but no sign of colitis or diverticulitis some mild constipation may be present in that left side and transverse colon. Diverticulosis of the sigmoid with some muscular hypertrophy but no diverticulitis or colitis. Free fluid: No abdominal or pelvic ascites or loculated fluid collections. Aorta: Some atherosclerotic calcifications but no aneurysm or dissection. Adenopathy: No periaortic, other retroperitoneal, mesenteric, inguinal or pelvic pathologic sized adenopathy. Appendix: Not inflamed. Osseous structures: Lumbar lower thoracic vertebral bodies and posterior elements with some degenerative changes but no destructive lesion or fracture. Visualized ribs intact. The sacrum, SI joints, pelvis and hips show some mild degenerative change but no destructive lesion or fracture. Pelvis: Uterus anteverted and not enlarged. There is no pelvic mass. Bladder partially filled and has no signs of wall thickening, mass or stone. No dilated distal ureter or ureteral stone. No inguinal or ventral abdominal/pelvic bowel herniation, tiny omental fat herniating in the umbilicus without bowel. Stable. IMPRESSION: 1. Diverticulosis the left colon and sigmoid without signs of diverticulitis, colitis stricture or mass. Appendix seen and normal. 2. No pelvic mass uterus normal size and has some calcifications within but no pelvic or abdominal fluid, ascites in the upper abdomen, renal/ureteral or bladder stone. 3. Solid organs in the upper abdomen unremarkable. Gallbladder shows an adherent stone or polyp medial wall unchanged. No new or acute finding. <Electronically signed by Danny David > 07/25/21 1046
== END ==
LOC: M RAD 13:11
PROVIDERS: ATTEND Obstetrics & Gynecology
DX: K57.30 Diverticulosis of large intestine without perforation or abscess without bleeding (principal)
CPT/HCPCS: 74178; Q9963; Q9967

== ENCOUNTER → 2021-10-17 | Outpatient (REF) | payer MEDICARE ==
[~2021-10-17] MED LIST changes: -GASTROGRAFIN SOLUTION 30ML (Q9963) As Ordered ONE; -ISOVUE-370 76% 100ML VIAL As Ordered ONE
[2021-10-17 12:17] LABS: APPEARANCE, URINE CLEAR (CLEAR); BACTERIA, URINE AUTO 1+ (NEGATIVE); BILIRUBIN, URINE AUTO NEGATIVE (NEGATIVE); BLOOD, URINE BLOOD 1+ (NEGATIVE); COLOR, URINE YELLOW (YELLOW); GLUCOSE, URINE (UA) AUTO NEGATIVE (NEGATIVE); KETONE, URINE AUTO NEGATIVE (NEGATIVE); LEUKOCYTE ESTERASE, URINE AUTO 2+ (NEGATIVE); NITRITE, URINE AUTO NEGATIVE (NEGATIVE); PROTEIN, URINE AUTO NEGATIVE (NEGATIVE); RBC, URINE AUTO 1 /HPF (0-3); RENAL EPITHELIAL CELLS 1 /HPF; SQUAMOUS EPITHELIAL CELL UR AU 1 /HPF (0-6); TRANSITIONAL EPITHELIAL AUTO <1 /HPF; UROBILINOGEN, URINE AUTO 0.2 mg/dL (0.0-2.0); WBC, URINE AUTO 8 /HPF (0-3)
== END ==
LOC: M LAB REF 11:13
PROVIDERS: ATTEND Obstetrics & Gynecology
DX: N39.3 Stress incontinence (female) (male) (principal); N32.81 Overactive bladder; N39.41 Urge incontinence

== ENCOUNTER → 2021-10-25 | Outpatient (CLI) | payer MEDICARE ==
[2021-10-25 13:30] LABS: BASO % 0.6 % (0.0-1.0); EOS % 0.8 % (0.0-3.0); HEMATOCRIT 38.5 % (36.0-47.0); HEMOGLOBIN 12.5 g/dl (12.0-15.5); LYMPH # 1.7 10^3/uL (1.5-5.0); LYMPH % 31.9 % (24.0-44.0); MEAN CORPUSCULAR HEMOGLOBIN 30.3 pg (27.0-33.0); MEAN CORPUSCULAR HGB CONC 32.5 g/dl (32.0-36.5); MEAN CORPUSCULAR VOLUME 93.2 fl (80.0-96.0); MONO # 0.5 10^3/uL (0.0-0.8); MONO % 8.5 % (2.0-8.0); NEUTROPHILS # 3.1 10^3/uL (1.5-8.5); PLATELET COUNT, AUTOMATED 269 10^3/uL (150-450); RED BLOOD COUNT 4.13 10^6/uL (4.00-5.40); WHITE BLOOD COUNT 5.3 10^3/uL (4.0-10.0)
[2021-10-25 14:04] LABS: ALBUMIN 3.4 GM/DL (3.2-5.2); ALT/SGPT 35 U/L (12-78); BILIRUBIN,TOTAL 0.3 MG/DL (0.2-1.0); BLOOD UREA NITROGEN 12 MG/DL (7-18); CALCIUM LEVEL 9.2 MG/DL (8.8-10.2); CARBON DIOXIDE LEVEL 30 MEQ/L (21-32); CHLORIDE LEVEL 104 MEQ/L (98-107); CHOLESTEROL LEVEL 232 MG/DL (<200); CREATININE FOR GFR 0.57 MG/DL (0.55-1.30); GLOMERULAR FILTRATION RATE > 60.0 (>39); GLUCOSE, FASTING 81 MG/DL (70-100); HDL CHOLESTEROL 40 MG/DL (>40); LDL CHOLESTEROL 168 MG/DL (<100); NON-HDL-C 192 MG/DL; POTASSIUM SERUM 4.5 MEQ/L (3.5-5.1); SODIUM LEVEL 140 MEQ/L (136-145); TOTAL PROTEIN 6.9 GM/DL (6.4-8.2); TRIGLYCERIDES LEVEL 122 MG/DL (<150)
[2021-10-25 15:30] LABS: APPEARANCE, URINE CLEAR (CLEAR); BACTERIA, URINE AUTO NEGATIVE (NEGATIVE); BILIRUBIN, URINE AUTO NEGATIVE (NEGATIVE); BLOOD, URINE BLOOD NEGATIVE (NEGATIVE); COLOR, URINE YELLOW (YELLOW); GLUCOSE, URINE (UA) AUTO NEGATIVE (NEGATIVE); KETONE, URINE AUTO NEGATIVE (NEGATIVE); LEUKOCYTE ESTERASE, URINE AUTO NEGATIVE (NEGATIVE); NITRITE, URINE AUTO NEGATIVE (NEGATIVE); PROTEIN, URINE AUTO NEGATIVE (NEGATIVE); RBC, URINE AUTO 1 /HPF (0-3); SPECIFIC GRAVITY URINE AUTO 1.008 (1.002-1.035); SQUAMOUS EPITHELIAL CELL UR AU 0 /HPF (0-6); UROBILINOGEN, URINE AUTO 0.2 mg/dL (0.0-2.0); WBC, URINE AUTO 1 /HPF (0-3)
== END ==
LOC: M PLALAB 11:35
PROVIDERS: ATTEND Nurse Practitioner Family
DX: Z01.818 Encounter for other preprocedural examination (principal); E78.00 Pure hypercholesterolemia, unspecified

== ENCOUNTER → 2021-11-10 | Outpatient (CLI) | payer MEDICARE ==
[~2021-11-10] MED LIST changes: +ACET-683 PO; +B-CO1TAB12 PO
== END ==
LOC: M LABSMTC 10:12
PROVIDERS: ATTEND Anesthesiology
DX: Z01.812 Encounter for preprocedural laboratory examination (principal); Z20.822 Contact with and (suspected) exposure to COVID-19

== ENCOUNTER 2021-11-15 06:20 | Day surgery (SDC) | payer MEDICARE ==
[~2021-11-15] VITALS: Ht 144.8 cm; Wt 44.0 kg
[~2021-11-15 06:20] MED LIST changes: +LR 1,000 ML IV ONE; +PHENAZOPYRIDINE 100 MG TAB PO ONE; +ceFAZolin SOD 2 GM in IV 1 EA IV ONE
[2021-11-15 06:46] LABS: HEMATOCRIT 38.7 % (36.0-47.0); HEMOGLOBIN 12.6 g/dl (12.0-15.5); MEAN CORPUSCULAR HEMOGLOBIN 29.9 pg (27.0-33.0); MEAN CORPUSCULAR HGB CONC 32.6 g/dl (32.0-36.5); MEAN CORPUSCULAR VOLUME 91.9 fl (80.0-96.0); PLATELET COUNT, AUTOMATED 265 10^3/uL (150-450); RED BLOOD COUNT 4.21 10^6/uL (4.00-5.40); WHITE BLOOD COUNT 6.8 10^3/uL (4.0-10.0)
[2021-11-15] MEDS ORDERED: KETOROLAC 60MG 2ML VIAL As Ordered ONE (07:16)
[2021-11-15] MEDS ORDERED: propofoL 200 MG/20 ML VIAL As Ordered ONE (07:16)
[2021-11-15] MEDS ORDERED: ROCURONIUM BROMIDE 50 MG/5 ML VIAL As Ordered ONE ×2 (07:16→09:10)
[2021-11-15] MEDS ORDERED: LIDOCAINE 2% 100MG/5ML SDV (FOR ANES.) As Ordered ONE (07:16)
[2021-11-15] MEDS ORDERED: SUGAMMADEX SODIUM 500 MG/5 ML VIAL (BRIDION) As Ordered ONE (07:16)
[2021-11-15] MEDS ORDERED: dexameTHASONE 4 MG/ML 1ML VIAL (J1100 PER 1MG) As Ordered ONE (07:16)
[2021-11-15] MEDS ORDERED: ONDANSETRON 4MG/2ML VIAL As Ordered ONE ×2 (07:16→11:54)
[2021-11-15] MEDS ORDERED: ACETAMINOPHEN 1000MG 100ML IV BTL (OFIRMEV) (J0131 PER 10MG) As Ordered ONE (07:16)
[2021-11-15] MEDS ORDERED: MIDAZOLAM INJ 2MG/2ML VIAL (J2250 PER 1MG) As Ordered ONE (07:17)
[2021-11-15] MEDS ORDERED: fentaNYL 100 MCG/2 ML INJECTION As Ordered ONE (07:17)
[2021-11-15] MEDS ORDERED: LIDOCAINE 5% OINT 30GM TUBE As Ordered ONE (07:24)
[2021-11-15] MEDS ORDERED: SCOPOLAMINE 1MG TRANSDERMAL PATCH TOP ONE (07:25)
[2021-11-15] MEDS ORDERED: ePHEDrine SULFATE 25 MG/5 ML(5MG/ML) SYRINGE As Ordered ONE (08:34)
[2021-11-15] MEDS ORDERED: GLYCOPYRROLATE INJ 0.2 MG/ML 2 ML VIAL As Ordered ONE (08:34)
[2021-11-15] MEDS: SERTRALINE HCL 25 MG TABLET PO SCH (09:00)
[2021-11-15] MEDS ORDERED: VASOPRESSIN INJ 20 UNITS/ML VIAL As Ordered ONE (10:45)
[2021-11-15] MEDS ORDERED: ONDANSETRON 4MG/2ML VIAL IV PRN (12:05)
[2021-11-15] MEDS ORDERED: oxyCODONE 5MG TAB PO PRN (12:05)
[2021-11-15] MEDS ORDERED: LR 1,000 ML IV SCH (12:05)
[2021-11-15] MEDS ORDERED: NORCO, ANEXSIA 5/325MG TABLET (HYDROcodone/ACETAMINOPHEN) PO PRN (12:10)
[2021-11-15] MEDS ORDERED: IBUPROFEN 600MG TAB PO PRN (12:10)
[2021-11-15] MEDS: fentaNYL 100 MCG/2 ML INJECTION IV PRN ×2 (12:15→12:20)
[2021-11-15] MEDS: PROMETHAZINE INJ 25 MG/ML VIAL (J2550) IV PRN ×2 (12:25→13:02)
[2021-11-15 14:15] VITALS: BP 146/65
[2021-11-15 14:45] VITALS: BP 145/70
[2021-11-15 15:45] VITALS: BP 146/78
[2021-11-15 16:45] VITALS: BP 149/71
[2021-11-15] MEDS: LR 1,000 ML IV SCH ×2 (17:07→20:01)
[2021-11-15] MEDS: NORCO, ANEXSIA 5/325MG TABLET (HYDROcodone/ACETAMINOPHEN) PO PRN (17:08)
[2021-11-15 20:00] VITALS: BP 139/63
[2021-11-16] VITALS: BP 143/63
[2021-11-16 04:00] VITALS: BP 141/64
[2021-11-16] MEDS: LR 1,000 ML IV SCH (04:10)
[2021-11-16] MEDS: NORCO, ANEXSIA 5/325MG TABLET (HYDROcodone/ACETAMINOPHEN) PO PRN (06:38)
[2021-11-16 08:00] VITALS: BP 142/63
[2021-11-16 08:33] LABS: HEMATOCRIT 29.7 % (36.0-47.0); MEAN CORPUSCULAR HGB CONC 32.7 g/dl (32.0-36.5); PLATELET COUNT, AUTOMATED 197 10^3/uL (150-450); RED BLOOD COUNT 3.23 10^6/uL (4.00-5.40); WHITE BLOOD COUNT 9.2 10^3/uL (4.0-10.0)
[2021-11-16 08:44] LABS: HEMOGLOBIN 9.7 g/dl (12.0-15.5)
[2021-11-16] MEDS: SERTRALINE HCL 25 MG TABLET PO SCH (09:00)
[2021-11-16] MEDS ORDERED: POLYVINYL ALCOHOL OPHTH SOLN 15 ML(LIQUITEARS) OU SCH (09:00)
[2021-11-16] MEDS ORDERED: IBUP200C33 PO (09:21)
[2021-11-16] MEDS ORDERED: HYDR-3713 PO (09:25)
[2021-11-16 12:47] VITALS: BP 162/71
[2021-11-16 13:02] VITALS: BP 142/62
== END 2021-11-16 14:45 | disposition home or self-care (01) ==
LOC: M SDC 06:20 → M PED 14:05 → M SDC 11-16 14:45
PROVIDERS: ATTEND Obstetrics & Gynecology
DX: D25.1 Intramural leiomyoma of uterus (principal); N81.4 Uterovaginal prolapse, unspecified; N39.3 Stress incontinence (female) (male); N36.41 Hypermobility of urethra; K57.92 Diverticulitis of intestine, part unspecified, without perforation or abscess without bleeding; E78.00 Pure hypercholesterolemia, unspecified; F43.22 Adjustment disorder with anxiety; I87.2 Venous insufficiency (chronic) (peripheral); M19.90 Unspecified osteoarthritis, unspecified site; R51.9 Headache, unspecified; H04.123 Dry eye syndrome of bilateral lacrimal glands; Z88.5 Allergy status to narcotic agent; Z88.2 Allergy status to sulfonamides; Z79.899 Other long term (current) drug therapy; Z53.31 Laparoscopic surgical procedure converted to open procedure
CPT/HCPCS: 36415; 57260; 57282; 57288; 58262; 85027; 86850; 86900; 86901; 88307; C1713; C1771; J0131; J0690; J1100; J1885; J2250; J2405; J3010

== ENCOUNTER 2021-12-17 19:01 | Emergency (ER) | payer MEDICARE ==
[~2021-12-17] VITALS: Ht 144.8 cm; Wt 42.6 kg
[2021-12-17] MEDS: GASTROGRAFIN SOLUTION 30ML PO SCH ×2 (10:40→23:20)
[~2021-12-17 19:01] MED LIST changes: +HYDR-3713 PO; +IBUP200C33 PO; -LR 1,000 ML IV ONE; -PHENAZOPYRIDINE 100 MG TAB PO ONE; -ceFAZolin SOD 2 GM in IV 1 EA IV ONE
[2021-12-17] MEDS ORDERED: MORPHINE 2 MG/ML 1ML VIAL IV PRN (21:15)
[2021-12-17 21:24] LABS: BASO % 0.3 % (0.0-1.0); EOS # 0.1 10^3/uL (0.0-0.5); EOS % 0.6 % (0.0-3.0); HEMATOCRIT 35.1 % (36.0-47.0); HEMOGLOBIN 11.6 g/dl (12.0-15.5); LYMPH # 1.9 10^3/uL (1.5-5.0); LYMPH % 16.7 % (24.0-44.0); MEAN CORPUSCULAR HEMOGLOBIN 30.3 pg (27.0-33.0); MEAN CORPUSCULAR VOLUME 91.6 fl (80.0-96.0); MONO # 0.8 10^3/uL (0.0-0.8); MONO % 7.2 % (2.0-8.0); NEUTROPHILS # 8.6 10^3/uL (1.5-8.5); NEUTROPHILS % 74.9 % (36.0-66.0); PLATELET COUNT, AUTOMATED 285 10^3/uL (150-450); RED BLOOD COUNT 3.83 10^6/uL (4.00-5.40); WHITE BLOOD COUNT 11.4 10^3/uL (4.0-10.0)
[2021-12-17 21:52] LABS: ALBUMIN 3.3 GM/DL (3.2-5.2); ALT/SGPT 34 U/L (12-78); BILIRUBIN,DIRECT < 0.1 MG/DL (0.0-0.2); BILIRUBIN,TOTAL 0.5 MG/DL (0.2-1.0); BLOOD UREA NITROGEN 9 MG/DL (7-18); CALCIUM LEVEL 8.8 MG/DL (8.8-10.2); CARBON DIOXIDE LEVEL 28 MEQ/L (21-32); CHLORIDE LEVEL 104 MEQ/L (98-107); CREATININE FOR GFR 0.47 MG/DL (0.55-1.30); GLOMERULAR FILTRATION RATE > 60.0 (>39); GLUCOSE, FASTING 91 MG/DL (70-100); LIPASE 74 U/L (73-393); POTASSIUM SERUM 4.1 MEQ/L (3.5-5.1); SODIUM LEVEL 137 MEQ/L (136-145); TOTAL PROTEIN 6.8 GM/DL (6.4-8.2)
[2021-12-18] MEDS ORDERED: ISOVUE-370 76% 100ML VIAL As Ordered ONE (00:01)
[2021-12-18] MEDS ORDERED: NORCO 5/325MG TABLET (BULK FOR ED) PO ONE (01:55)
[2021-12-18] MEDS ORDERED: CIPROFLOXACIN 500MG TABLET PO ONE (01:55)
[2021-12-18] MEDS ORDERED: metroNIDAZOLE (FLAGYL) 500MG TABLET PO ONE (01:55)
[2021-12-18] MEDS ORDERED: CIPR-249 PO (01:57)
[2021-12-18] MEDS ORDERED: METR-265 PO (01:57)
[2021-12-18 02:14] VITALS: BP 162/72
== END 2021-12-18 02:21 | disposition home or self-care (01) ==
LOC: M ED 19:01
DX: K57.32 Diverticulitis of large intestine without perforation or abscess without bleeding (principal); N13.30 Unspecified hydronephrosis; K56.7 Ileus, unspecified; E78.5 Hyperlipidemia, unspecified; Z88.1 Allergy status to other antibiotic agents; Z88.2 Allergy status to sulfonamides; Z88.6 Allergy status to analgesic agent
CPT/HCPCS: 74177; 80047; 80048; 80076; 81001; 83605; 83690; 85025; 87086; 93041; 96374; 99284; J2270; Q9963; Q9967

== ENCOUNTER → 2022-01-04 | Outpatient (REF) | payer MEDICARE ==
[~2022-01-04] MED LIST changes: +METR-265 PO
== END ==
LOC: M LAB REF 13:37
PROVIDERS: ATTEND Nurse Practitioner Family
DX: R19.4 Change in bowel habit (principal)

== ENCOUNTER → 2022-04-09 | Outpatient (CLI) | payer MEDICARE ==
[2022-04-09 11:55] LABS: BASO % 0.7 % (0.0-1.0); EOS % 0.5 % (0.0-3.0); HEMATOCRIT 38.2 % (36.0-47.0); HEMOGLOBIN 12.3 g/dl (12.0-15.5); LYMPH # 1.8 10^3/uL (1.5-5.0); LYMPH % 31.4 % (24.0-44.0); MEAN CORPUSCULAR HEMOGLOBIN 28.9 pg (27.0-33.0); MEAN CORPUSCULAR HGB CONC 32.2 g/dl (32.0-36.5); MEAN CORPUSCULAR VOLUME 89.9 fl (80.0-96.0); MONO # 0.4 10^3/uL (0.0-0.8); MONO % 7.6 % (2.0-8.0); NEUTROPHILS # 3.5 10^3/uL (1.5-8.5); NEUTROPHILS % 59.6 % (36.0-66.0); PLATELET COUNT, AUTOMATED 262 10^3/uL (150-450); RED BLOOD COUNT 4.25 10^6/uL (4.00-5.40); WHITE BLOOD COUNT 5.8 10^3/uL (4.0-10.0)
[2022-04-09 12:52] LABS: BLOOD UREA NITROGEN 10 MG/DL (7-18); CARBON DIOXIDE LEVEL 32 MEQ/L (21-32); CHLORIDE LEVEL 106 MEQ/L (98-107); GLOMERULAR FILTRATION RATE > 60.0 (>39); GLUCOSE, FASTING 84 MG/DL (70-100); POTASSIUM SERUM 4.2 MEQ/L (3.5-5.1); SODIUM LEVEL 140 MEQ/L (136-145)
== END ==
LOC: M LAB 11:02
PROVIDERS: ATTEND Nurse Practitioner Family
DX: Z01.818 Encounter for other preprocedural examination (principal); D50.9 Iron deficiency anemia, unspecified; N13.30 Unspecified hydronephrosis

== ENCOUNTER → 2022-04-09 | Outpatient (CLI) | payer MEDICARE | LOC: M PLALAB 14:50 | PROVIDERS: ATTEND Physician Assistant | DX: N13.30 Unspecified hydronephrosis (principal) ==

== ENCOUNTER → 2022-04-20 | Outpatient (REF) | payer MEDICARE ==
[2022-04-20 12:10] LABS: APPEARANCE, URINE HAZY (CLEAR); BACTERIA, URINE AUTO 1+ (NEGATIVE); BILIRUBIN, URINE AUTO NEGATIVE (NEGATIVE); BLOOD, URINE BLOOD 1+ (NEGATIVE); COLOR, URINE YELLOW (YELLOW); GLUCOSE, URINE (UA) AUTO NEGATIVE (NEGATIVE); KETONE, URINE AUTO NEGATIVE (NEGATIVE); LEUKOCYTE ESTERASE, URINE AUTO 1+ (NEGATIVE); MUCUS, URINE SMALL (NEGATIVE); NITRITE, URINE AUTO NEGATIVE (NEGATIVE); PROTEIN, URINE AUTO NEGATIVE (NEGATIVE); RBC, URINE AUTO 2 /HPF (0-3); SPECIFIC GRAVITY URINE AUTO 1.009 (1.002-1.035); SQUAMOUS EPITHELIAL CELL UR AU 0 /HPF (0-6); UROBILINOGEN, URINE AUTO 0.2 mg/dL (0.0-2.0); WBC, URINE AUTO 2 /HPF (0-3)
== END ==
LOC: M LAB REF 11:42
PROVIDERS: ATTEND Nurse Practitioner Family
DX: Z01.818 Encounter for other preprocedural examination (principal); N39.0 Urinary tract infection, site not specified

== ENCOUNTER → 2022-04-24 | Outpatient (CLI) | payer MEDICARE | LOC: M LABSMTC 09:25 | PROVIDERS: ATTEND Anesthesiology | DX: Z11.52 Encounter for screening for COVID-19 (principal) ==

== ENCOUNTER 2022-04-29 06:06 | Day surgery (SDC) | payer MEDICARE ==
[~2022-04-29] VITALS: Ht 144.8 cm; Wt 41.3 kg
[~2022-04-29 06:06] MED LIST changes: +ceFAZolin SOD 2 GM in IV 1 EA IV ONE
[2022-04-29] MEDS ORDERED: ISOVUE-300 61% 50ML VIAL As Ordered ONE (06:51)
[2022-04-29] MEDS ORDERED: LR 1,000 ML IV SCH ×2 (06:55→08:00)
[2022-04-29] MEDS ORDERED: DESFLURANE 240 ML INHALANT As Ordered ONE (07:44)
[2022-04-29] MEDS ORDERED: ACETAMINOPHEN 1000MG 100ML IV BTL (OFIRMEV) (J0131 PER 10MG) As Ordered ONE (07:44)
[2022-04-29] MEDS ORDERED: fentaNYL 100 MCG/2 ML INJECTION As Ordered ONE (07:44)
[2022-04-29] MEDS ORDERED: propofoL 200 MG/20 ML VIAL As Ordered ONE (07:44)
[2022-04-29] MEDS ORDERED: LIDOCAINE 2% 100MG/5ML SDV (FOR ANES.) As Ordered ONE (07:44)
[2022-04-29] MEDS ORDERED: ONDANSETRON 4MG 2ML VIAL As Ordered ONE (07:44)
[2022-04-29] MEDS ORDERED: METOCLOPRAMIDE INJ 10MG/2ML VIAL (J2765 PER 1) As Ordered ONE (07:44)
[2022-04-29] MEDS ORDERED: dexameTHASONE 4 MG/ML 1ML VIAL (J1100 PER 1MG) As Ordered ONE (07:44)
[2022-04-29] MEDS ORDERED: MIDAZOLAM INJ 2MG/2ML VIAL (J2250 PER 1MG) As Ordered ONE (07:44)
[2022-04-29] MEDS ORDERED: ONDANSETRON 4MG 2ML VIAL IV PRN (08:00)
[2022-04-29] MEDS ORDERED: fentaNYL 100 MCG/2 ML INJECTION IV PRN (08:00)
[2022-04-29 09:10] VITALS: BP 182/75
== END 2022-04-29 09:16 | disposition home or self-care (01) ==
LOC: M SDC 06:06
PROVIDERS: ATTEND Urology
DX: N13.30 Unspecified hydronephrosis (principal); I87.2 Venous insufficiency (chronic) (peripheral); M34.0 Progressive systemic sclerosis; D50.9 Iron deficiency anemia, unspecified; F43.22 Adjustment disorder with anxiety; Z88.2 Allergy status to sulfonamides; Z88.5 Allergy status to narcotic agent; Z79.899 Other long term (current) drug therapy
CPT/HCPCS: 52281; 76000; J0131; J0690; J1100; J2250; J2405; J2765; J3010; Q9967

== ENCOUNTER → 2023-01-17 | Outpatient (CLI) | payer MEDICARE ==
[~2023-01-17] MED LIST changes: -ceFAZolin SOD 2 GM in IV 1 EA IV ONE
[2023-01-17 13:41] LABS: BASO % 0.7 % (0.0-1.0); EOS # 0.1 10^3/uL (0.0-0.5); HEMATOCRIT 39.3 % (36.0-47.0); HEMOGLOBIN 12.3 g/dl (12.0-15.5); LYMPH # 1.9 10^3/uL (1.5-5.0); LYMPH % 32.4 % (24.0-44.0); MEAN CORPUSCULAR HEMOGLOBIN 29.3 pg (27.0-33.0); MEAN CORPUSCULAR HGB CONC 31.3 g/dl (32.0-36.5); MEAN CORPUSCULAR VOLUME 93.6 fl (80.0-96.0); MONO # 0.5 10^3/uL (0.0-0.8); MONO % 9.2 % (2.0-8.0); NEUTROPHILS # 3.3 10^3/uL (1.5-8.5); NEUTROPHILS % 56.5 % (36.0-66.0); PLATELET COUNT, AUTOMATED 288 10^3/uL (150-450); WHITE BLOOD COUNT 5.9 10^3/uL (4.0-10.0)
[2023-01-17 14:02] LABS: IRON (FE) 45 UG/DL (50-170); PERCENT SATURATION 13.2 % (13.2-45.0); TOTAL IRON BINDING CAPACITY 340 UG/DL (250-425)
[2023-01-17 14:03] LABS: BLOOD UREA NITROGEN 10 MG/DL (9-23); CALCIUM LEVEL 9.1 MG/DL (8.3-10.6); CARBON DIOXIDE LEVEL 29 MMOL/L (20-31); CHLORIDE LEVEL 106 MMOL/L (98-107); CREATININE FOR GFR 0.54 MG/DL (0.55-1.30); GLOMERULAR FILTRATION RATE > 60.0 (>39); GLUCOSE, FASTING 80 MG/DL (74-106); POTASSIUM SERUM 4.5 MMOL/L (3.5-5.1); SODIUM LEVEL 138 MMOL/L (136-145)
[2023-01-17 14:04] LABS: FERRITIN 8.8 NG/ML (7.3-270.7)
== END ==
LOC: M PLALAB 10:25
PROVIDERS: ATTEND Nurse Practitioner Family
DX: I87.2 Venous insufficiency (chronic) (peripheral) (principal); D50.9 Iron deficiency anemia, unspecified

== ENCOUNTER → 2023-01-20 | Outpatient (CLI) | payer MEDICARE ==
[2023-01-20 17:22] LABS: FOLATE 6.09 NG/ML (>5.4)
[2023-01-20 17:24] LABS: FREE T4 0.99 NG/DL (0.89-1.76); THYROID STIMULATING HORMONE 0.74 uIU/ML (0.55-4.78); TOTAL 25(OH) VITAMIN D 49.4 NG/ML (20.0-100.0)
== END ==
LOC: M PLALAB 14:22
PROVIDERS: ATTEND Nurse Practitioner Family
DX: R20.2 Paresthesia of skin (principal)

== ENCOUNTER → 2024-01-20 | Outpatient (CLI) | payer MEDICARE ==
[2024-01-20 15:38] LABS: BASO % 0.6 % (0.0-1.0); EOS # 0.1 10^3/uL (0.0-0.5); EOS % 1.1 % (0.0-3.0); HEMATOCRIT 34.9 % (36.0-47.0); HEMOGLOBIN 11.3 g/dl (12.0-15.5); LYMPH # 1.8 10^3/uL (1.5-5.0); LYMPH % 25.2 % (24.0-44.0); MEAN CORPUSCULAR HEMOGLOBIN 29.5 pg (27.0-33.0); MEAN CORPUSCULAR HGB CONC 32.4 g/dl (32.0-36.5); MEAN CORPUSCULAR VOLUME 91.1 fl (80.0-96.0); MONO # 0.6 10^3/uL (0.0-0.8); MONO % 8.3 % (2.0-8.0); NEUTROPHILS # 4.6 10^3/uL (1.5-8.5); NEUTROPHILS % 64.5 % (36.0-66.0); PLATELET COUNT, AUTOMATED 284 10^3/uL (150-450); RED BLOOD COUNT 3.83 10^6/uL (4.00-5.40); WHITE BLOOD COUNT 7.1 10^3/uL (4.0-10.0)
[2024-01-20 16:10] LABS: IRON (FE) 31 UG/DL (50-170); PERCENT SATURATION 9.1 % (13.2-45.0); TOTAL IRON BINDING CAPACITY 339 UG/DL (250-425)
[2024-01-20 16:11] LABS: ALBUMIN 3.3 G/DL (3.2-5.2); ALKALINE PHOSPHATASE 131 U/L (46-116); ALT/SGPT 49 U/L (7.0-40); AST/SGOT 48 U/L (<34); BILIRUBIN,TOTAL 0.2 MG/DL (0.3-1.2); BLOOD UREA NITROGEN 12 MG/DL (9-23); CALCIUM LEVEL 8.4 MG/DL (8.3-10.6); CARBON DIOXIDE LEVEL 29 MMOL/L (20-31); CHLORIDE LEVEL 103 MMOL/L (98-107); GLOMERULAR FILTRATION RATE > 60.0 (>32); GLUCOSE, FASTING 80 MG/DL (74-106); POTASSIUM SERUM 4.4 MMOL/L (3.5-5.1); SODIUM LEVEL 137 MMOL/L (136-145); TOTAL PROTEIN 6.6 G/DL (5.7-8.2)
[2024-01-20 16:13] LABS: FERRITIN 8.1 NG/ML (7.3-270.7)
== END ==
LOC: M PLALAB 14:08
PROVIDERS: ATTEND Family Medicine
DX: I87.2 Venous insufficiency (chronic) (peripheral) (principal); D50.9 Iron deficiency anemia, unspecified

== ENCOUNTER → 2024-04-12 | Outpatient (CLI) | payer MEDICARE ==
[2024-04-12 17:57] LABS: BASO # 0.1 10^3/uL (0.0-0.2); BASO % 0.6 % (0.0-1.0); EOS % 0.5 % (0.0-3.0); HEMATOCRIT 36.9 % (36.0-47.0); HEMOGLOBIN 11.9 g/dl (12.0-15.5); LYMPH # 2.1 10^3/uL (1.5-5.0); LYMPH % 24.4 % (24.0-44.0); MEAN CORPUSCULAR HEMOGLOBIN 30.1 pg (27.0-33.0); MEAN CORPUSCULAR HGB CONC 32.2 g/dl (32.0-36.5); MEAN CORPUSCULAR VOLUME 93.2 fl (80.0-96.0); MONO # 0.7 10^3/uL (0.0-0.8); MONO % 7.7 % (2.0-8.0); NEUTROPHILS # 5.8 10^3/uL (1.5-8.5); NEUTROPHILS % 66.5 % (36.0-66.0); PLATELET COUNT, AUTOMATED 271 10^3/uL (150-450); RED BLOOD COUNT 3.96 10^6/uL (4.00-5.40); WHITE BLOOD COUNT 8.7 10^3/uL (4.0-10.0)
[2024-04-12 18:36] LABS: ALBUMIN 3.3 G/DL (3.2-5.2); ALKALINE PHOSPHATASE 128 U/L (46-116); ALT/SGPT 37 U/L (7.0-40); AST/SGOT 32 U/L (<34); BILIRUBIN,TOTAL 0.4 MG/DL (0.3-1.2); BLOOD UREA NITROGEN 10 MG/DL (9-23); CALCIUM LEVEL 9.2 MG/DL (8.3-10.6); CARBON DIOXIDE LEVEL 30 MMOL/L (20-31); CHLORIDE LEVEL 108 MMOL/L (98-107); CREATININE FOR GFR 0.55 MG/DL (0.55-1.30); GLOMERULAR FILTRATION RATE > 60.0 (>32); GLUCOSE, FASTING 108 MG/DL (74-106); IRON (FE) 45 UG/DL (50-170); PERCENT SATURATION 13.5 % (13.2-45.0); POTASSIUM SERUM 3.8 MMOL/L (3.5-5.1); SODIUM LEVEL 140 MMOL/L (136-145); TOTAL IRON BINDING CAPACITY 333 UG/DL (250-425); TOTAL PROTEIN 6.8 G/DL (5.7-8.2)
[2024-04-12 18:39] LABS: FERRITIN 9.4 NG/ML (7.3-270.7)
== END ==
LOC: M PLALAB 14:34
PROVIDERS: ATTEND Nurse Practitioner Family
DX: D50.9 Iron deficiency anemia, unspecified (principal)

== ENCOUNTER → 2025-01-17 | Outpatient (CLI) | payer MEDICARE ==
[~2025-01-17] MED LIST changes: -B-CO1TAB12 PO; +B-CO1TAB14 PO
[2025-01-17 13:54] LABS: BASO % 0.6 % (0.0-1.0); EOS % 0.6 % (0.0-3.0); HEMATOCRIT 40.4 % (36.0-47.0); HEMOGLOBIN 12.6 g/dl (12.0-15.5); LYMPH # 1.9 10^3/uL (1.5-5.0); LYMPH % 28.1 % (24.0-44.0); MEAN CORPUSCULAR HEMOGLOBIN 29.9 pg (27.0-33.0); MEAN CORPUSCULAR HGB CONC 31.2 g/dl (32.0-36.5); MEAN CORPUSCULAR VOLUME 95.7 fl (80.0-96.0); MONO # 0.5 10^3/uL (0.0-0.8); MONO % 7.6 % (2.0-8.0); NEUTROPHILS # 4.3 10^3/uL (1.5-8.5); NEUTROPHILS % 62.8 % (36.0-66.0); PLATELET COUNT, AUTOMATED 245 10^3/uL (150-450); RED BLOOD COUNT 4.22 10^6/uL (4.00-5.40); WHITE BLOOD COUNT 6.9 10^3/uL (4.0-10.0)
[2025-01-17 14:10] LABS: FERRITIN 15.5 NG/ML (7.3-270.7)
[2025-01-17 14:12] LABS: ALBUMIN 3.2 G/DL (3.2-5.2); ALKALINE PHOSPHATASE 116 U/L (35-104); ALT/SGPT 35 U/L (7.0-40); AST/SGOT 33 U/L (<34); BILIRUBIN,TOTAL 0.4 MG/DL (0.3-1.2); BLOOD UREA NITROGEN 12 MG/DL (9-23); CALCIUM LEVEL 9.1 MG/DL (8.3-10.6); CARBON DIOXIDE LEVEL 29 MMOL/L (20-31); CHLORIDE LEVEL 107 MMOL/L (98-107); CREATININE FOR GFR 0.56 MG/DL (0.55-1.30); GLOMERULAR FILTRATION RATE > 90.0 (>32); GLUCOSE, FASTING 96 MG/DL (74-106); IRON (FE) 54 UG/DL (50-170); PERCENT SATURATION 17.7 % (13.2-45.0); POTASSIUM SERUM 4.2 MMOL/L (3.5-5.1); SODIUM LEVEL 142 MMOL/L (136-145); TOTAL IRON BINDING CAPACITY 305 UG/DL (250-425)
== END ==
LOC: M PLALAB 11:13
PROVIDERS: ATTEND Nurse Practitioner Family
DX: I87.2 Venous insufficiency (chronic) (peripheral) (principal); E61.1 Iron deficiency

== ENCOUNTER → 2025-06-09 | Outpatient (CLI) | payer MEDICARE ==
[2025-06-09 14:17] LABS: BASO # 0.0 10^3/uL (0.0-0.2); BASO % 0.6 % (0.0-1.0); EOS # 0.0 10^3/uL (0.0-0.5); EOS % 0.6 % (0.0-3.0); LYMPH # 1.8 10^3/uL (1.5-5.0); LYMPH % 28.2 % (24.0-44.0); MONO # 0.6 10^3/uL (0.0-0.8); MONO % 8.6 % (2.0-8.0); NEUTROPHILS # 4.0 10^3/uL (1.5-8.5); NEUTROPHILS % 61.8 % (36.0-66.0); PLATELET COUNT, AUTOMATED 255 10^3/uL (150-450)
[2025-06-09 14:30] LABS: ALT/SGPT 32 U/L (7.0-40); AST/SGOT 34 U/L (<34); CALCIUM LEVEL 8.7 MG/DL (8.3-10.6); CARBON DIOXIDE LEVEL 28 MMOL/L (20-31); CHLORIDE LEVEL 107 MMOL/L (98-107); CREATININE FOR GFR 0.55 MG/DL (0.55-1.30); GLOMERULAR FILTRATION RATE > 90.0 (>32); IRON (FE) 72 UG/DL (50-170); PERCENT SATURATION 24.7 % (13.2-45.0); POTASSIUM SERUM 3.8 MMOL/L (3.5-5.1); SODIUM LEVEL 140 MMOL/L (136-145)
== END ==
LOC: M PLALAB 11:25
PROVIDERS: ATTEND Nurse Practitioner Family
DX: D50.9 Iron deficiency anemia, unspecified (principal)